=== PATIENT | female | born 1955 | race Asian ===

== ENCOUNTER 2021-10-31 09:54 | Outpatient (CLI) | payer OTHER ==
[2021-10-31] MEDS ORDERED: BARIUM SULFATE 135 ML SUSP.RECON (E-Z-HD) PO ONE (10:28)
== END 2021-10-31 19:04 | disposition home or self-care (01) ==
LOC: SRD 09:54
PROVIDERS: ATTEND Internal Medicine
DX: K22.89 Other specified disease of esophagus (principal); R13.19 Other dysphagia
CPT/HCPCS: 74220-TC